=== PATIENT | female | born 1985 | race Caucasian/White ===

== ENCOUNTER 2017-11-14 18:38 | Emergency (ER) | payer SELFPAY ==
[2017-11-14 18:39] VITALS: BP 123/83; PULSE 110; RESP 16; TEMP 98.6; O2SAT 98
--- NOTE | 2017-11-14 20:22 | PD ---
HPI Chief Complaint: Cold / Flu Symptoms Time Seen by Provider: 18:52 Travel History International Travel<30 days: No Contact w/Intl Traveler<30days: No Traveled to known affect area: No History of Present Illness HPI Pt has a 32-year-old female presenting to the emergency for evaluation of shortness of breath, chest congestion, nausea, vomiting, body aches. Patient states her symptoms started this morning. Onset with sudden, patient has not taken any medications to alleviate this symptoms. She also reports right upper quadrant abdominal pain that radiates to her back, this also started this morning. This started suddenly, there are no alleviating or exacerbating factors. Patient reports decreased appetite. She denies any documented fevers but reports chills. PFSH Past Medical History Medical History: Denies Significant Hx ?: Unknown Social History Tobacco Use: No Allergies-Medications (Allergen,Severity, Reaction): Coded Allergies: aspirin (Verified Allergy, Unknown, 11/14/17) Review of Systems Except as stated in HPI: all other systems reviewed are Neg General / Constitutional: Positive: Fever, Chills HENT: Positive: Congestion Cardiovascular: No: Chest Pain or Discomfort Respiratory: Positive: Cough, No: Shortness of Breath Gastrointestinal: Positive: Nausea, Vomiting, Abdominal Pain Genitourinary: No: Dysuria Musculoskeletal: Positive: Myalgias Physical Exam Narrative GENERAL: Well-developed, well-nourished, well-appearing female. Presenting in no acute distress. SKIN: Warm and dry. HEAD: Normocephalic. EYES: No scleral icterus. No injection or drainage. CARDIOVASCULAR: Mildly tachycardic RESPIRATORY: No accessory muscle use. Data Data Last Documented VS Vital Signs Date Time Temp Pulse Resp B/P (MAP) Pulse Ox O2 Delivery O2 Flow Rate FiO2 11/14/17 18:39 98.6 110 16 123/83 (96) 98 Orders Orders Complete Blood Count With Diff (11/14/17 19:05) Comprehensive Metabolic Panel (11/14/17 19:05) Lipase (11/14/17 19:05) Urinalysis - C+S If Indicated (11/14/17 19:05) Ed Urine Pregnancytest Poc (11/14/17 19:05) MDM Medical Decision Making Medical Screen Exam Complete: Yes Emergency Medical Condition: Yes Interpretation(s) Vital Signs Date Time Temp Pulse Resp B/P (MAP) Pulse Ox O2 Delivery O2 Flow Rate FiO2 11/14/17 18:39 98.6 110 16 123/83 (93) 98 Differential Diagnosis Bronchitis versus pneumonia versus influenza versus cholecystitis versus gastritis versus virus syndrome versus other Narrative Course Patient has a 32-year-old female presenting for evaluation of cold of flulike symptoms as well as abdominal pain. Patient mildly tachycardic on arrival, she his afebrile. Patient workup was not initiated in triage, she is awaiting bed placement. Patient with called to be bedded, she was not in the emergency department after several attempts to locate her. Patient left AMA. Diagnosis Primary Impression: Left against medical advice Dee Ritchie Nov 14, 2017 20:22
== END 2017-11-14 21:58 | disposition left against medical advice (07) ==
LOC: NED 18:38
DX: R06.02 Shortness of breath (principal); R11.2 Nausea with vomiting, unspecified; R10.11 Right upper quadrant pain
CPT/HCPCS: 99281

== ENCOUNTER 2017-11-18 18:03 | Emergency (ER) | payer SELFPAY ==
[~2017-11-18] VITALS: Ht 152.4 cm; Wt 85.0 kg
[2017-11-18 18:11] VITALS: BP 157/92; PULSE 90; RESP 18; TEMP 98.4; O2SAT 99
[2017-11-18] MEDS ORDERED: ONDANSETRON ODT 4 MG TAB PO ONE (18:45)
[2017-11-18] MEDS ORDERED: ZOLO100T PO (18:49)
[2017-11-18 19:14] LABS: BILIRUBIN, URINE NEG (NEG); BLOOD, URINE NEG (NEG); GLUCOSE,URINE NEG (NEG); KETONE, URINE 10 mg/dL (NEG); MUCUS URINE FEW /lpf (OCC); NITRITE,URINE NEG (NEG); PH, URINE 6.5 (5.0-8.5); SQUAMOUS EPITHELIAL CELL URINE 1 /hpf (0-5); URINE COLOR YELLOW (YELLW/STRAW); URINE LEUKOCYTE ESTERASE TRACE (NEG)
--- NOTE | 2017-11-18 19:33 | PD ---
HPI Chief Complaint: GI Complaint Time Seen by Provider: 18:32 Travel History International Travel<30 days: No Contact w/Intl Traveler<30days: No Traveled to known affect area: No History of Present Illness HPI Patient has a 32-year-old female presents emergency department at approximately 4 weeks gestational age by last menstrual period for evaluation of some mild nausea without significant vomiting. Patient states she really just wants to know how far along she has, states she has had some low back pain as well, no vaginal bleeding no vaginal discharge, states the pain as minimal, intermittent, cramping in nature, associated signs symptoms in context as above. PFSH Past Medical History Anxiety: Yes Influenza Vaccination: Yes ?: Unknown LMP: 10/03/18 Past Surgical History Other Surgery: Yes (right foot tendon repair and skin graft) Social History Alcohol Use: No Tobacco Use: Yes (10/31 ppd) Substance Use: Yes (marijuana occasionally) Allergies-Medications (Allergen,Severity, Reaction): Coded Allergies: aspirin (Verified Allergy, Intermediate, Hives, 11/18/17) Reported Meds & Prescriptions Reported Meds & Active Scripts Active 6.75-0.2 mg ( Vit W/ Ferrous Fumara) 6.75 Mg Iron-200 Mcg Tab 1 Tab PO DAILY 30 Days Reported Zoloft (Sertraline HCl) 100 Mg Tab 100 Mg PO HS Review of Systems Except as stated in HPI: all other systems reviewed are Neg Physical Exam Narrative GENERAL: Well-developed well-nourished in no obvious distress SKIN: Focused skin assessment warm/dry. HEAD: Atraumatic. Normocephalic. EYES: Pupils equal and round. No scleral icterus. No injection or drainage. ENT: No nasal bleeding or discharge. Mucous membranes pink and moist. NECK: Trachea midline. No JVD. CARDIOVASCULAR: Regular rate and rhythm. No murmur appreciated. RESPIRATORY: No accessory muscle use. Clear to auscultation. Breath sounds equal bilaterally. GASTROINTESTINAL: Abdomen soft, non-tender, nondistended. Hepatic and splenic margins not palpable. MUSCULOSKELETAL: No obvious deformities. No clubbing. No cyanosis. No edema. NEUROLOGICAL: Awake and alert. No obvious cranial nerve deficits. Motor grossly within normal limits. Normal speech. PSYCHIATRIC: Appropriate mood and affect; insight and judgment normal. Data Data Last Documented VS Vital Signs Date Time Temp Pulse Resp B/P (MAP) Pulse Ox O2 Delivery O2 Flow Rate FiO2 11/18/17 18:11 98.4 90 18 157/92 (113) 99 Orders Orders Urinalysis - C+S If Indicated (11/18/17 18:32) Ed Urine Pregnancytest Poc (11/18/17 18:32) Ondansetron Odt (Zofran Odt) (11/18/17 18:45) Wet Prep Profile (11/18/17 19:00) Gc And Chlamydia Pcr (11/18/17 19:00) Beta Hcg (Quant/Titer) (11/18/17 19:32) Complete Blood Count With Diff (11/18/17 19:32) Basic Metabolic Panel (Bmp) (11/18/17 19:32) Abo/Rh Blood Type (11/18/17 19:32) Ed Poc Ultrasound (11/18/17 ) Ed Discharge Order (11/18/17 21:20) Labs Laboratory Tests Test 11/18/17 18:55 11/18/17 19:30 11/18/17 19:40 Urine Color YELLOW Urine Turbidity CLEAR Urine pH 6.5 Urine Specific [place] 1.017 Urine Protein NEG mg/dL Urine Glucose (UA) NEG mg/dL Urine Ketones 10 mg/dL Urine Occult Blood NEG Urine Nitrite NEG Urine Bilirubin NEG Urine Urobilinogen LESS THAN 2.0 MG/DL Urine Leukocyte Esterase TRACE Urine RBC 1 /hpf Urine WBC 3 /hpf Urine Squamous Epithelial Cells 1 /hpf Urine Mucus FEW /lpf Microscopic Urinalysis Comment CULT NOT INDICATED Clue Cells (Wet Prep) NONE SEEN Vaginal Trichomonas (Wet Prep) NONE SEEN Vaginal Yeast (Wet Prep) NONE SEEN Chlamydia trachomatis DNA (PCR) NOT DETECTED Neisseria gonorrhoeae DNA (PCR) NOT DETECTED White Blood Count 9.9 TH/MM3 Red Blood Count 5.05 MIL/MM3 Hemoglobin 13.9 GM/DL Hematocrit 41.3 % Mean Corpuscular Volume 81.8 FL Mean Corpuscular Hemoglobin 27.5 PG Mean Corpuscular Hemoglobin Concent 33.7 % Red Cell Distribution Width 14.1 % Platelet Count 241 TH/MM3 Mean Platelet Volume 9.8 FL Neutrophils (%) (Auto) 58.6 % Lymphocytes (%) (Auto) 31.0 % Monocytes (%) (Auto) 7.7 % Eosinophils (%) (Auto) 1.8 % Basophils (%) (Auto) 0.9 % Neutrophils # (Auto) 5.8 TH/MM3 Lymphocytes # (Auto) 3.1 TH/MM3 Monocytes # (Auto) 0.8 TH/MM3 Eosinophils # (Auto) 0.2 TH/MM3 Basophils # (Auto) 0.1 TH/MM3 CBC Comment DIFF FINAL Differential Comment Blood Urea Nitrogen 8 MG/DL Creatinine 0.55 MG/DL Random Glucose 93 MG/DL Calcium Level 9.5 MG/DL Sodium Level 137 MEQ/L Potassium Level 3.4 MEQ/L Chloride Level 106 MEQ/L Carbon Dioxide Level 24.5 MEQ/L Anion Gap 7 MEQ/L Estimat Glomerular Filtration Rate 130 ML/MIN Human Chorionic Gonadotropin, Quant 6681 MIU/ML MDM Medical Decision Making Medical Screen Exam Complete: Yes Emergency Medical Condition: Yes Differential Diagnosis Ectopic unlikely, nausea vomiting in , hyperemesis gravidarum , early , round ligament pain. Narrative Course Patient room to the emergency department, bedside ultrasound reassuring for single intrauterine , patient feeling better after Zofran. On revisit the patient has crying when asked why she states that she has asks if I know anything about custody hearings. I discussed that she should probably discuss this with a middleware consultant. States she has not had any concern for the safety of her child nor herself. Discussed the results with the patient in recommend following up with an AIRPORT RAMP ATTENDANT, discussed early care starting vitamins in return to ED criteria. She stable for discharge. Procedures Procedure Narrative Bedside ultrasound: Transabdominal views obtained of the uterus showing a single intrauterine gestational sac with faint yolk sac, double decidual sign. No gross abnormalities. Too early for dating her heart tones Diagnosis Primary Impression: Nausea/vomiting in Patient Instructions: General Instructions, Nausea and Vomiting in ( ED), (DC) Med/Other Pt SpecificInfo: Prescription(s) given Scripts Vit W/ Ferrous Fumara ( 6.75-0.2 mg) 6.75 Mg Iron-200 Mcg Tab 1 TAB PO DAILY for 30 Days, 9 Refills Prov: Thor Ernandez MD 11/18/17 Disposition: 01 DISCHARGE HOME Condition: Stable Thor Ernandez MD Nov 18, 2017 19:33
[2017-11-18 19:51] LABS: AUTOMATED NEUTROPHIL # 5.8 TH/MM3 (1.8-7.7); BASOPHIL # 0.1 TH/MM3 (0-0.2); BASOPHIL % 0.9 % (0.0-2.0); EOSINOPHIL # 0.2 TH/MM3 (0-0.4); EOSINOPHIL % 1.8 % (0.0-4.0); HEMATOCRIT 41.3 % (35.0-46.0); HEMOGLOBIN 13.9 GM/DL (11.6-15.3); LYMPHOCYTE # 3.1 TH/MM3 (1.0-4.8); MEAN CELL VOLUME 81.8 FL (80.0-100.0); MEAN CORPUSCULAR HEMOGLOBIN 27.5 PG (27.0-34.0); MEAN CORPUSCULAR HGB CONC 33.7 % (32.0-36.0); MEAN PLATELET VOLUME 9.8 FL (7.0-11.0); MONO % 7.7 % (0.0-8.0); MONOCYTE # 0.8 TH/MM3 (0-0.9); NEUT % 58.6 % (16.0-70.0); PLATELET COUNT 241 TH/MM3 (150-450); RED BLOOD COUNT 5.05 MIL/MM3 (4.00-5.30); RED CELL DISTRIBUTION WIDTH 14.1 % (11.6-17.2); WHITE BLOOD COUNT 9.9 TH/MM3 (4.0-11.0)
[2017-11-18 20:05] LABS: BICARBONATE 24.5 MEQ/L (21.0-32.0); CALCIUM 9.5 MG/DL (8.5-10.1); CREATININE 0.55 MG/DL (0.50-1.00)
[2017-11-18] MEDS ORDERED: PRENTAB72 PO (21:20)
== END 2017-11-18 21:47 | disposition home or self-care (01) ==
LOC: NEPD 18:03
DX: O21.9 Vomiting of pregnancy, unspecified (principal); O99.341 Other mental disorders complicating pregnancy, first trimester; F41.9 Anxiety disorder, unspecified; O99.331 Smoking (tobacco) complicating pregnancy, first trimester; Z3A.01 Less than 8 weeks gestation of pregnancy
CPT/HCPCS: 80048; 81001; 84702; 84703; 85025; 86900; 86901; 87210; 87491; 87591

== ENCOUNTER 2017-12-13 13:49 | Emergency (ER) | payer MEDICAID ==
[~2017-12-13] VITALS: Ht 152.4 cm; Wt 85.9 kg
[~2017-12-13 13:49] MED LIST: PRENTAB72 PO; ZOLO100T PO
[2017-12-13 13:55] VITALS: BP 120/84; PULSE 102; RESP 20; TEMP 98; O2SAT 99
[2017-12-13 15:39] LABS: BACTERIA, URINE FEW /hpf; BILIRUBIN, URINE NEG (NEG); BLOOD, URINE NEG (NEG); GLUCOSE,URINE NEG (NEG); KETONE, URINE NEG (NEG); MUCUS URINE FEW /lpf (OCC); NITRITE,URINE NEG (NEG); SQUAMOUS EPITHELIAL CELL URINE 4 /hpf (0-5); URINE COLOR YELLOW (YELLW/STRAW); URINE LEUKOCYTE ESTERASE SMALL (NEG)
[2017-12-13 15:50] LABS: AUTOMATED NEUTROPHIL # 9.5 TH/MM3 (1.8-7.7); BASOPHIL # 0.1 TH/MM3 (0-0.2); BASOPHIL % 0.8 % (0.0-2.0); EOSINOPHIL # 0.1 TH/MM3 (0-0.4); EOSINOPHIL % 0.7 % (0.0-4.0); HEMATOCRIT 41.7 % (35.0-46.0); HEMOGLOBIN 14.2 GM/DL (11.6-15.3); LYMPH % 16.5 % (9.0-44.0); LYMPHOCYTE # 2.1 TH/MM3 (1.0-4.8); MEAN CELL VOLUME 82.1 FL (80.0-100.0); MEAN PLATELET VOLUME 9.7 FL (7.0-11.0); MONO % 5.3 % (0.0-8.0); MONOCYTE # 0.7 TH/MM3 (0-0.9); NEUT % 76.7 % (16.0-70.0); PLATELET COUNT 252 TH/MM3 (150-450); RED BLOOD COUNT 5.08 MIL/MM3 (4.00-5.30); RED CELL DISTRIBUTION WIDTH 14.6 % (11.6-17.2); WHITE BLOOD COUNT 12.4 TH/MM3 (4.0-11.0)
[2017-12-13 16:07] LABS: ALBUMIN 4.3 GM/DL (3.4-5.0); ALT (GPT) 33 U/L (10-53); AST (GOT) 18 U/L (15-37); BICARBONATE 20.8 MEQ/L (21.0-32.0); BLOOD UREA NITROGEN 6 MG/DL (7-18); CALCIUM 9.1 MG/DL (8.5-10.1); CHLORIDE 105 MEQ/L (98-107); GLOMERULAR FILTRATION RATE 187 ML/MIN (>89); GLUCOSE,RANDOM 85 MG/DL (74-106); SODIUM (NA) 135 MEQ/L (136-145)
[2017-12-13 16:21] LABS: ALKALINE PHOSPHATASE 84 U/L (45-117); TOTAL BILIRUBIN ADULT 0.2 MG/DL (0.2-1.0); TOTAL PROTEIN 8.5 GM/DL (6.4-8.2)
[2017-12-13] MEDS ORDERED: ONDANSETRON ODT 4 MG TAB PO ONE (16:45)
[2017-12-13] MEDS ORDERED: cefTRIAXone 250 MG VIAL IM ONE (17:45)
[2017-12-13] MEDS ORDERED: LIDOCAINE HCL 1% 50 ML VIAL IM ONE (17:45)
[2017-12-13] MEDS ORDERED: AZITHROMYCIN 250 MG TAB PO ONE (17:45)
--- NOTE | 2017-12-13 18:01 | RADRPT ---
EXAM DATE/TIME: 12/13/2017 17:17 [facility] COMPARISON: No previous studies available for comparison. INDICATIONS : Pelvic bleeding with . LAB(S): Beta-hC MEDICAL HISTORY : . . Anxiety SURGICAL HISTORY : Right foot tendon repair with skin graft. Left rotator cuff repair. ENCOUNTER: Initial ACUITY: 1 day PAIN SCORE: 0/10 LOCATION: Bilateral pelvis MEASUREMENTS: UTERUS: 10.7 x 7.8 x 6.9 cm ENDOMETRIAL STRIPE: >20 mm RIGHT OVARY: 2.9 x 2.3 x 1.7 cm LEFT OVARY: 4.2 x 2.2 x 2.2 cm FREE FLUID: No CROWN RUMP LENGTH: 2.7 cm = 9 WKS 4 DAYS FHR: 183 BPM FINDINGS: IUP is in place with heart 3 beats per minute. There is a small approximate 2.9 x 3.3 subchorio merlyn hemorrhage. The adnexa is unremarkable and there is no free fluid. CONCLUSION: Small subchorionic hemorrhage otherwise viable IUP. Connie Staley MD on December 13, 2017 at 17:55 Board Certified Radiologist. This report was verified electronically.
[2017-12-13] MEDS ORDERED: CEPH-460 PO (18:42)
--- NOTE | 2017-12-13 18:43 | PD ---
HPI Chief Complaint: Related Problem Time Seen by Provider: 16:09 Travel History International Travel<30 days: No Contact w/Intl Traveler<30days: No Traveled to known affect area: No History of Present Illness HPI 32-year-old female, approximately 2 months , presents to the emergency Department with complaint of vaginal spotting and left side/flank pain that has been intermittent for the past 3-4 days. Spotting has only occurred 3-4 times in the days also. Reports hesitancy and urinary frequency. Denies hematuria. Reports foul vaginal odor, but denies vaginal discharge. Denies fevers. Reports late-night vomiting and associates it to . Denies lower abdominal cramping. Denies vaginal leaking. Says that left flank pain is not much of a pain, but more of a "discomfort" and rates it as a 7/10. Has not taken any medications or tried any treatments to relieve her symptoms. No known aggravating or relieving factors. Last menstrual period she thinks was October 03-, but does not recall having a period in September and thinks her last one was in August. 3 para 1. Has an appointment with floor to help her cv rn on 327. Primary care provider is Dr. Thomas. Allergies to aspirin. History of asthma. Has no other medical complaints. No other modifying factors or associated signs and symptoms. PFSH Past Medical History Anxiety: Yes ?: Past Surgical History Other Surgery: Yes (right foot tendon repair and skin graft) Social History Alcohol Use: No Tobacco Use: Yes (1/2 ppd) Substance Use: Yes (marijuana occasionally) Allergies-Medications (Allergen,Severity, Reaction): Coded Allergies: aspirin (Verified Allergy, Intermediate, Hives, 12/13/17) Reported Meds & Prescriptions Reported Meds & Active Scripts Active Keflex (Cephalexin) 500 Mg Cap 500 Mg PO Q12H 7 Days 6.75-0.2 mg ( Vit W/ Ferrous Fumara) 6.75 Mg Iron-200 Mcg Tab 1 Tab PO DAILY 30 Days Review of Systems Except as stated in HPI: all other systems reviewed are Neg Physical Exam Narrative GENERAL: Well-nourished, well-developed female patient, in no acute distress; afebrile, nontoxic-appearing SKIN: Warm and dry. HEAD: Atraumatic. Normocephalic. EYES: Pupils equal and round. No scleral icterus. No injection or drainage. ENT: Mucous membranes pink and moist. NECK: Trachea midline. No lymphadenopathy. CARDIOVASCULAR: Regular rate and rhythm. No murmur appreciated. RESPIRATORY: No accessory muscle use. Clear to auscultation. Breath sounds equal bilaterally. GASTROINTESTINAL: Abdomen soft, non-tender, nondistended. Bilateral pelvic region nontender to palpation. Hepatic and splenic margins not palpable. No guarding, rigidity, rebound tenderness. PELVIC: Exam done in the presence of a nurse. Speculum exam reveals edematous and erythematous cervix with light green , mucopurulent, foul-smelling discharge. Bimanual exam reveals no palpable masses or adnexa tenderness, no uterine tenderness. Negative cervical motion tenderness. Cervical os is closed. BACK: No CVA tenderness. MUSCULOSKELETAL: No obvious deformities. No clubbing. No cyanosis. No edema. NEUROLOGICAL: Awake and alert. No obvious cranial nerve deficits. Motor grossly within normal limits. Normal speech. PSYCHIATRIC: Appropriate mood and affect; insight and judgment normal. Data Data Last Documented VS Vital Signs Date Time Temp Pulse Resp B/P (MAP) Pulse Ox O2 Delivery O2 Flow Rate FiO2 12/13/17 18:59 84 17 121/78 (92) 98 12/13/17 13:55 98.0 Orders Orders Beta Hcg (Quant/Titer) (12/13/17 13:57) Complete Blood Count With Diff (12/13/17 13:57) Comprehensive Metabolic Panel (12/13/17 13:57) Urinalysis - C+S If Indicated (12/13/17 13:57) Ondansetron Odt (Zofran Odt) (12/13/17 16:45) Gc And Chlamydia Pcr (12/13/17 16:45) Us Pelvis (Ques Preg/Ectopic) (12/13/17 ) Wet Prep Profile (12/13/17 16:45) Ceftriaxone Inj (Rocephin Inj) (12/13/17 17:45) Lidocaine 1% Inj (50 Ml) (Xylocaine 1% I (12/13/17 17:45) Azithromycin (Zithromax) (12/13/17 17:45) Ed Discharge Order (12/13/17 18:34) Labs Laboratory Tests Test 12/13/17 14:45 12/13/17 15:55 12/13/17 17:38 Urine Color YELLOW Urine Turbidity CLEAR Urine pH 7.0 Urine Specific [place] 1.010 Urine Protein NEG mg/dL Urine Glucose (UA) NEG mg/dL Urine Ketones NEG mg/dL Urine Occult Blood NEG Urine Nitrite NEG Urine Bilirubin NEG Urine Urobilinogen LESS THAN 2.0 MG/DL Urine Leukocyte Esterase SMALL Urine RBC 1 /hpf Urine WBC 4 /hpf Urine Squamous Epithelial Cells 4 /hpf Urine Bacteria FEW /hpf Urine Mucus FEW /lpf Microscopic Urinalysis Comment CULT NOT INDICATED White Blood Count 12.4 TH/MM3 Red Blood Count 5.08 MIL/MM3 Hemoglobin 14.2 GM/DL Hematocrit 41.7 % Mean Corpuscular Volume 82.1 FL Mean Corpuscular Hemoglobin 28.0 PG Mean Corpuscular Hemoglobin Concent 34.0 % Red Cell Distribution Width 14.6 % Platelet Count 252 TH/MM3 Mean Platelet Volume 9.7 FL Neutrophils (%) (Auto) 76.7 % Lymphocytes (%) (Auto) 16.5 % Monocytes (%) (Auto) 5.3 % Eosinophils (%) (Auto) 0.7 % Basophils (%) (Auto) 0.8 % Neutrophils # (Auto) 9.5 TH/MM3 Lymphocytes # (Auto) 2.1 TH/MM3 Monocytes # (Auto) 0.7 TH/MM3 Eosinophils # (Auto) 0.1 TH/MM3 Basophils # (Auto) 0.1 TH/MM3 CBC Comment DIFF FINAL Differential Comment Blood Urea Nitrogen 6 MG/DL Creatinine 0.40 MG/DL Random Glucose 85 MG/DL Total Protein 8.5 GM/DL Albumin 4.3 GM/DL Calcium Level 9.1 MG/DL Alkaline Phosphatase 84 U/L Aspartate Amino Transf (AST/SGOT) 18 U/L Alanine Aminotransferase (ALT/SGPT) 33 U/L Total Bilirubin 0.2 MG/DL Sodium Level 135 MEQ/L Potassium Level 3.7 MEQ/L Chloride Level 105 MEQ/L Carbon Dioxide Level 20.8 MEQ/L Anion Gap 9 MEQ/L Estimat Glomerular Filtration Rate 187 ML/MIN Human Chorionic Gonadotropin, Quant 37038 MIU/ML Clue Cells (Wet Prep) NONE SEEN Vaginal Trichomonas (Wet Prep) NONE SEEN Vaginal Yeast (Wet Prep) NONE SEEN Chlamydia trachomatis DNA (PCR) NOT DETECTED Neisseria gonorrhoeae DNA (PCR) NOT DETECTED MDM Medical Decision Making Medical Screen Exam Complete: Yes Emergency Medical Condition: Yes Medical Record Reviewed: Yes Differential Diagnosis Threatened miscarriage, PID, chlamydia, gonorrhea, UTI, pyelonephritis Narrative Course 32-year-old female, approximately 2 months , with left flank "discomfort ," urinary symptoms, and vaginal spotting for the past 3-4 days. Blood type A+ . Denies abdominal pain, pelvic cramping. Reports vaginal odor, but denies discharge or leaking. After the patient pain medication and she declined. Zofran ordered for complaint of nausea. 1800: Pelvic exam concludes cervicitis and the patient will be empirically treated with Rocephin and azithromycin in the ER. No cervical motion tenderness. Cervical os is closed. 1830: CBC, CMP unremarkable. Urinalysis with bacteria, otherwise unremarkable. UPT positive. Beta hCG 05180. Vaginal yeast, Trichomonas, bacterial vaginosis negative. Chlamydia and gonorrhea pending. Pelvic ultrasound concluded: Pelvis Ultrasound 12/13/17 0000 Signed Impressions: Service Date/Time: Wednesday, December 13, 2017 17:17 - CONCLUSION: Small subchorionic hemorrhage otherwise viable IUP. K. Charlie Staley MD Discussed US findings with the patient; patient provided a copy of US report. Instructed patient to follow with her cv rn and return to the emergency department with worsening of symptoms. Instructed patient to follow up with primary care provider. Patient verbalizes understanding and agreement with treatment plan. Patient is medically cleared and stable for discharge. Discussed reasons to return to the emergency department. Patient agrees with treatment plan. The patients vital signs are stable and the patient is stable for outpatient follow-up and treatment. Patient discharged home, stable and in no acute distress. Diagnosis Primary Impression: Intrauterine Additional Impressions: Cervicitis Bacteriuria during Referrals: [facility] Plan[employer] Setter Primary Care Physician Patient Instructions: Cervicitis (ED), First Trimester (ED), General Instructions, Urinary Tract Infection in (ED) Additional Instructions: Take antibiotics as prescribed and complete full course Drink plenty of fluids Maintain good personal hygiene Follow-up with primary care provider Return to the emergency department immediately with worsening of symptoms Med/Other Pt SpecificInfo: Prescription(s) given Scripts Cephalexin (Keflex) 500 Mg Cap 500 MG PO Q12H for Infection for 7 Days, #14 CAP 0 Refills Prov: Sydni Arnold 12/13/17 Disposition: 01 DISCHARGE HOME Condition: Stable Sydni Arnold Dec 13, 2017 18:43
[2017-12-13 18:59] VITALS: BP 121/78
== END 2017-12-13 19:00 | disposition home or self-care (01) ==
LOC: NEPD 13:49
DX: O23.511 Infections of cervix in pregnancy, first trimester (principal); R82.71 Bacteriuria; F41.9 Anxiety disorder, unspecified; J45.909 Unspecified asthma, uncomplicated; O99.331 Smoking (tobacco) complicating pregnancy, first trimester; Z88.6 Allergy status to analgesic agent; Z34.91 Encounter for supervision of normal pregnancy, unspecified, first trimester
CPT/HCPCS: 76700; 80053; 81001; 84702; 85025; 87210; 87491; 87591; 96372; 99284; J0696

== ENCOUNTER 2017-12-25 10:40 | Emergency (ER) | payer MEDICAID ==
[~2017-12-25 10:40] MED LIST changes: +CEPH-460 PO; -ZOLO100T PO
[2017-12-25 11:33] VITALS: BP 120/72; PULSE 89; RESP 18; TEMP 99
[2017-12-25 11:52] LABS: AUTOMATED NEUTROPHIL # 7.5 TH/MM3 (1.8-7.7); BASOPHIL # 0.1 TH/MM3 (0-0.2); BASOPHIL % 0.9 % (0.0-2.0); EOSINOPHIL # 0.1 TH/MM3 (0-0.4); EOSINOPHIL % 0.7 % (0.0-4.0); HEMATOCRIT 41.3 % (35.0-46.0); HEMOGLOBIN 14.5 GM/DL (11.6-15.3); LYMPHOCYTE # 2.3 TH/MM3 (1.0-4.8); MEAN CELL VOLUME 81.9 FL (80.0-100.0); MEAN CORPUSCULAR HEMOGLOBIN 28.8 PG (27.0-34.0); MEAN CORPUSCULAR HGB CONC 35.2 % (32.0-36.0); MEAN PLATELET VOLUME 9.6 FL (7.0-11.0); MONOCYTE # 0.6 TH/MM3 (0-0.9); NEUT % 70.4 % (16.0-70.0); PLATELET COUNT 263 TH/MM3 (150-450); RED BLOOD COUNT 5.05 MIL/MM3 (4.00-5.30); RED CELL DISTRIBUTION WIDTH 14.8 % (11.6-17.2); WHITE BLOOD COUNT 10.7 TH/MM3 (4.0-11.0)
[2017-12-25 12:14] LABS: ALBUMIN 4.6 GM/DL (3.4-5.0); AST (GOT) 11 U/L (15-37); BICARBONATE 24.1 MEQ/L (21.0-32.0); BLOOD UREA NITROGEN 7 MG/DL (7-18); CALCIUM 9.8 MG/DL (8.5-10.1); CHLORIDE 101 MEQ/L (98-107); CREATININE 0.58 MG/DL (0.50-1.00); GLOMERULAR FILTRATION RATE 122 ML/MIN (>89); GLUCOSE,RANDOM 86 MG/DL (74-106); SODIUM (NA) 133 MEQ/L (136-145)
[2017-12-25 12:15] LABS: ALT (GPT) 19 U/L (10-53)
[2017-12-25] MEDS ORDERED: ONDANSETRON ODT 4 MG TAB PO ONE (12:15)
[2017-12-25 12:18] LABS: BILIRUBIN, URINE NEG (NEG); BLOOD, URINE NEG (NEG); GLUCOSE,URINE NEG (NEG); KETONE, URINE 150 mg/dL (NEG); MUCUS URINE FEW /lpf (OCC); NITRITE,URINE NEG (NEG); SQUAMOUS EPITHELIAL CELL URINE 5 /hpf (0-5); URINE COLOR YELLOW (YELLW/STRAW); URINE LEUKOCYTE ESTERASE SMALL (NEG)
[2017-12-25 12:31] LABS: ALKALINE PHOSPHATASE 92 U/L (45-117); TOTAL BILIRUBIN ADULT 0.7 MG/DL (0.2-1.0); TOTAL PROTEIN 8.7 GM/DL (6.4-8.2)
--- NOTE | 2017-12-25 12:47 | PD ---
HPI Chief Complaint: Related Problem Time Seen by Provider: 11:51 Travel History International Travel<30 days: No Contact w/Intl Traveler<30days: No Traveled to known affect area: No History of Present Illness HPI 32 year-old approximately 12 week female presents to the emergency room for evaluation of nausea for the past 4 days. Patient was just seen for vaginal bleeding 2 weeks ago and found to have an intrauterine with subchorionic hemorrhage via ultrasound. States she has been spotting mildly since then. She also had bacteriuria and was discharged with Keflex. States she took 4 days worth of Keflex before she was no longer able to tolerate the medication without feeling really ill. Nausea did not develop until several days after. She has only vomited one time which was last night. States vomit appeared to be stomach acid. She has had decreased appetite over the past 2 days. Denies any fevers or diarrhea. Patient is taking vitamins. No other daily medications. She does not have an STRUCTURAL FITTER yet. She has an appointment with one this week. [facility] Past Medical History Anxiety: Yes ?: LMP: 09/2017 Past Surgical History Other Surgery: Yes (right foot tendon repair and skin graft) Social History Alcohol Use: No Tobacco Use: Yes (10/31 ppd) Substance Use: Yes (marijuana ) Allergies-Medications (Allergen,Severity, Reaction): Coded Allergies: aspirin (Verified Allergy, Intermediate, Hives, 12/13/17) Reported Meds & Prescriptions Reported Meds & Active Scripts Active Diclegis (Doxylamine-Pyridoxine) 10-10 Mg Tab 1 Tab PO HS Macrobid (Nitrofurantoin Monohydrate Macrocrystals) 100 Mg Capsule 100 Mg PO BID 7 Days 6.75-0.2 mg ( Vit W/ Ferrous Fumara) 6.75 Mg Iron-200 Mcg Tab 1 Tab PO DAILY 30 Days Review of Systems Except as stated in HPI: all other systems reviewed are Neg Physical Exam Narrative GENERAL: Well-nourished, well-developed female no acute distress. Afebrile. Ambulatory. SKIN: Focused skin assessment warm/dry. HEAD: Normocephalic. EYES: No scleral icterus. No injection or drainage. NECK: Supple, trachea midline. No JVD or lymphadenopathy. CARDIOVASCULAR: Regular rate and rhythm without murmurs, gallops, or rubs. RESPIRATORY: Breath sounds equal bilaterally. No accessory muscle use. GASTROINTESTINAL: Abdomen soft, non-tender, nondistended. Data Data Last Documented VS Vital Signs Date Time Temp Pulse Resp B/P (MAP) Pulse Ox O2 Delivery O2 Flow Rate FiO2 12/25/17 11:33 99.0 89 18 120/72 (88) Orders Orders Beta Hcg (Quant/Titer) (12/25/17 11:35) Complete Blood Count With Diff (12/25/17 11:35) Comprehensive Metabolic Panel (12/25/17 11:35) Lipase (12/25/17 11:35) Urinalysis - C+S If Indicated (12/25/17 11:35) Ondansetron Odt (Zofran Odt) (12/25/17 12:15) Ed Discharge Order (12/25/17 12:47) Labs Laboratory Tests Test 12/25/17 11:35 White Blood Count 10.7 TH/MM3 Red Blood Count 5.05 MIL/MM3 Hemoglobin 14.5 GM/DL Hematocrit 41.3 % Mean Corpuscular Volume 81.9 FL Mean Corpuscular Hemoglobin 28.8 PG Mean Corpuscular Hemoglobin Concent 35.2 % Red Cell Distribution Width 14.8 % Platelet Count 263 TH/MM3 Mean Platelet Volume 9.6 FL Neutrophils (%) (Auto) 70.4 % Lymphocytes (%) (Auto) 22.0 % Monocytes (%) (Auto) 6.0 % Eosinophils (%) (Auto) 0.7 % Basophils (%) (Auto) 0.9 % Neutrophils # (Auto) 7.5 TH/MM3 Lymphocytes # (Auto) 2.3 TH/MM3 Monocytes # (Auto) 0.6 TH/MM3 Eosinophils # (Auto) 0.1 TH/MM3 Basophils # (Auto) 0.1 TH/MM3 CBC Comment DIFF FINAL Differential Comment Urine Color YELLOW Urine Turbidity CLEAR Urine pH 6.0 Urine Specific [place] 1.028 Urine Protein 30 mg/dL Urine Glucose (UA) NEG mg/dL Urine Ketones 150 mg/dL Urine Occult Blood NEG Urine Nitrite NEG Urine Bilirubin NEG Urine Urobilinogen LESS THAN 2.0 MG/DL Urine Leukocyte Esterase SMALL Urine RBC 1 /hpf Urine WBC 1 /hpf Urine Squamous Epithelial Cells 5 /hpf Urine Mucus FEW /lpf Microscopic Urinalysis Comment CULT NOT INDICATED Blood Urea Nitrogen 7 MG/DL Creatinine 0.58 MG/DL Random Glucose 86 MG/DL Total Protein 8.7 GM/DL Albumin 4.6 GM/DL Calcium Level 9.8 MG/DL Alkaline Phosphatase 92 U/L Aspartate Amino Transf (AST/SGOT) 11 U/L Alanine Aminotransferase (ALT/SGPT) 19 U/L Total Bilirubin 0.7 MG/DL Sodium Level 133 MEQ/L Potassium Level 4.0 MEQ/L Chloride Level 101 MEQ/L Carbon Dioxide Level 24.1 MEQ/L Anion Gap 8 MEQ/L Estimat Glomerular Filtration Rate 122 ML/MIN Lipase 114 U/L Human Chorionic Gonadotropin, Quant 15282 MIU/ML MDM Medical Decision Making Medical Screen Exam Complete: Yes Emergency Medical Condition: Yes Medical Record Reviewed: Yes Differential Diagnosis Intrauterine , viable , morning sickness, nausea in , gastroenteritis Narrative Course 32-year-old approximately 12 week female female presents to the emergency room for evaluation of nausea for the past 4 days. States it began after she was taking Keflex for bacteriuria. She vomited one time yesterday. No associated fever or diarrhea. Abdomen soft, nontender. Vital signs stable. CBC, CMP are unremarkable. Beta hCG is consistent with gestation. UA shows signs of bacteriuria. Because patient could not tolerate Keflex, medication will be changed to Macrobid. Bedside ultrasound reveals intrauterine with heart rate of 176 bpm. She was given Zofran in ED with significant relief and nausea. She will be discharged with prescription for Diclegis. She has an appointment with her STRUCTURAL FITTER this week. Told to follow-up with them or return for worsening symptoms. She understands and agrees to plan. Diagnosis Primary Impression: Nausea and vomiting during prior to 22 weeks gestation Additional Impressions: Bacteriuria during Intrauterine Referrals: Primary Care Physician Additional Instructions: Two tablets at bedtime on day 1 and 2; if symptoms persist, take 1 tablet in morning and 2 tablets at bedtime on day 3. Macrobid as directed, until gone. Follow up with her STRUCTURAL FITTER this week. Return to the emergency room for worsening symptoms. Med/Other Pt SpecificInfo: Prescription(s) given Scripts Doxylamine-Pyridoxine (Diclegis) 10-10 Mg Tab 1 TAB PO HS, #10 Prov: Rangel Dobbins MD 12/25/17 Nitrofurantoin Monohydrate Macrocrystals (Macrobid) 100 Mg Capsule 100 MG PO BID for Infection for 7 Days, #14 CAP 0 Refills Prov: Rangel Dobbins MD 12/25/17 Disposition: 01 DISCHARGE HOME Condition: Stable Melani Baldwin Dec 25, 2017 12:47
[2017-12-25] MEDS ORDERED: DOXY10TA PO (12:50)
[2017-12-25] MEDS ORDERED: MACR100C2 PO (12:50)
== END 2017-12-25 13:10 | disposition home or self-care (01) ==
LOC: NEPD 10:40
DX: O21.9 Vomiting of pregnancy, unspecified (principal); R82.71 Bacteriuria; O99.331 Smoking (tobacco) complicating pregnancy, first trimester; F17.200 Nicotine dependence, unspecified, uncomplicated; Z3A.12 12 weeks gestation of pregnancy
CPT/HCPCS: 80053; 81001; 83690; 84702; 85025